=== PATIENT | male | born 1995 | race Caucasian/White ===

== ENCOUNTER 2017-01-23 20:36 | Emergency (ER) | payer OTHER ==
[~2017-01-23] VITALS: Ht 177.8 cm; Wt 76.7 kg
[2017-01-23 20:44] VITALS: TEMP 37.8; Ht 177.8 cm; Wt 76.7 kg
--- NOTE | 2017-01-23 21:03 | EMERGENCY ROOM VISIT NOTE ---
History First contact with patient: 20:52 Chief Complaint: SORETHROAT Stated Complaint: SORE THROAT, HEADACHE, FATIGUE History of Present Illness The patient is a 21 year old male who presents to the Emergency Room with complaints of sore throat which began yesterday. The patient states that he woke up with a sore throat yesterday morning which has worsened today. He states that he has had a mild headache as well as body aches. He has felt chills but has not taken his temperature. He has taken one dose of ibuprofen earlier today. He does report a history of strep infections. The patient denies neck pain/stiffness, abdominal pain, nausea or vomiting. He denies any difficulty swallowing or breathing. Review of Systems A complete 10 point review of systems was reviewed with the patient with pertinent positives and negatives as per history of present illness. All else were negative. Social History Smoking Status: Never Smoker Current/Historical Medications Scheduled Cefdinir (Omnicef), 300 MG PO Q12H Ibuprofen Tab (Advil), 400 MG PO PRN UD Multivitamins/Minerals (Mvi With Minerals), 1 TAB PO Q2D Scheduled PRN Acetaminophen (Tylenol), 1,000 MG PO PRN UD PRN for Pain or Fever Multiple Vitamins W/ Minerals (Emergen-C Immune), 1 DOSE PO DAILY PRN for ILL Physical Exam Vital Signs Date Time Temp Pulse Resp B/P (MAP) Pulse Ox O2 Delivery O2 Flow Rate FiO2 01/23/17 22:01 88 16 100/47 97 01/23/17 20:47 95 Room Air 01/23/17 20:44 37.8 110 18 155/62 95 Room Air Physical Exam VITALS: Vitals are noted on the nurse's note and reviewed by myself. Vital signs stable. GENERAL: This is a 21-year-old male, in no acute distress, nondiaphoretic, well- developed well-nourished. SKIN: The skin was without rashes. EARS: External auditory canals clear, tympanic membranes pearly ortiz without erythema or effusion bilaterally. EYES: Pupils equal round and reactive to light and accommodation. Conjunctivae without injection, sclerae without icterus. MOUTH: Mucous membranes moist. Tonsils are enlarged bilaterally and are mildly erythematous. There is exudate present bilaterally. NECK: Supple without nuchal rigidity. Left anterior cervical lymphadenopathy. HEART: Regular rate and rhythm without murmurs gallops or rubs. LUNGS: Clear to auscultation bilaterally without wheezes, rales or rhonchi. NEURO: Patient was alert and oriented to person place and time. Medical Decision & Procedures Medications Administered Medications (Trade) Dose Ordered Sig/Jackie Route Start Time Stop Time Status Last Admin Dose Admin Cefdinir (Omnicef Cap) 600 mg ONE STAT PO 01/23/17 21:40 01/23/17 21:42 DC 01/23/17 21:59 600 MG Medical Decision Differential diagnosis includes strep pharyngitis, viral pharyngitis, among others. The patient is a 21-year-old male who presents today complaining of a sore throat. Rapid strep swab was performed and was negative. However, patient's exam is consistent with strep pharyngitis given his lymphadenopathy, exudate and fever. The patient will be placed on Omnicef, as he has a reported childhood allergy to penicillins. Conservative measures were discussed with the patient. He will follow-up with [facility] as needed. He verbalized understanding of my assessment and treatment plan and was discharged home in good condition. Medication Reconcilliation Current Medication List: was personally reviewed by me Blood Pressure Screening Patient's blood pressure: Normal blood pressure Impression Primary Impression: Acute pharyngitis Departure Information Dispostion Home / Self-Care Condition GOOD Prescriptions Cefdinir (OMNICEF) 300 Mg Cap 300 MG PO Q12H for 7 Days, #14 CAP Prov: Shima Moreland .PATRICIA 01/23/17 Referrals No Doctor, Assigned (PCP) Patient Instructions My [facility] Additional Instructions You were seen in the emergency department for your sore throat. You were prescribed Omnicef to be taken twice daily as prescribed. This is an antibiotic. All antibiotics have the potential to cause diarrhea. Stop this medication and contact a medical provider if you were to develop any significant adverse side effects including: wheezing, shortness of breath, passing out, vomiting, or a diffuse rash. Always take antibiotics as directed and COMPLETE the ENTIRE course regardless of the improvement of your symptoms. For pain and fever control, you can use the following alvf-bqw-cjtjwgn medicines (if >12 yo): - Regular strength (325mg/tab) Tylenol (acetaminophen) 2 tabs every 4-6 hours as needed. Do not exceed 12 tablets in a 24 hour period. Avoid taking more than 4 grams (4000 mg) of Tylenol per day. This includes any other sources of acetaminophen you may take on a regular basis. - Regular strength (200 mg/tab) Advil (ibuprofen) 1-2 tabs every 4-6 hours as needed. Do not exceed a dose of 3200 mg per day. - For best results, alternate dosing of Tylenol and Advil. In addition to your prescribed medications, you can also use the following home remedies: - Warm salt-water gargles 3 times per day can soothe your throat and help to fight infection. - Warm tea with honey can soothe your throat. Return to the emergency department if your symptoms persist or worsen over the next 2-3 days despite treatment course outlined above. Return to the emergency department if you develop the following symptoms of: inability to swallow solids , liquids, or drool; excessive wheezing or inability to catch your breath; or intractable fever or pain. Follow up with your primary care provider in 2-3 days from today's emergency department visit.
[2017-01-23] MEDS ORDERED: MULT1PAK42 PO (21:09)
[2017-01-23] MEDS ORDERED: MULT-513 PO (21:09)
[2017-01-23] MEDS ORDERED: ACET-1256 PO (21:09)
[2017-01-23] MEDS ORDERED: IBUP-103 PO (21:09)
[2017-01-23] MEDS ORDERED: CEFDINIR 300 MG CAP PO STA (21:40)
[2017-01-23] MEDS ORDERED: CEFD300C2 PO (21:46)
[2017-01-23 22:01] VITALS: BP 100/47; PULSE 88; O2SAT 97
--- NOTE | 2017-01-25 13:49 | Pharmacy Progress Note ---
ED Pharmacist Culture FollowUp Date of Service: Jan 25, 2017. Patient was sent home with a prescription for omnicef, which should cover the group B and group C beta strep growing from the patient's throat culture.
== END 2017-01-23 22:01 | disposition home or self-care (01) ==
LOC: C.EDB 20:39 → C.EDD 22:01
DX: J02.9 Acute pharyngitis, unspecified (principal)

== ENCOUNTER 2017-01-25 12:43 | Emergency (ER) | payer OTHER ==
[~2017-01-25] VITALS: Ht 177.8 cm; Wt 74.8 kg
[~2017-01-25 12:43] MED LIST: ACET-1256 PO; CEFD300C2 PO; IBUP-103 PO; MULT-513 PO; MULT1PAK42 PO
[2017-01-25 12:46] VITALS: TEMP 36.8; Ht 177.8 cm; Wt 74.8 kg
[2017-01-25] MEDS ORDERED: PRED20TA PO (13:23)
[2017-01-25] MEDS ORDERED: DEXAMETHASONE SOD INJ 10 MG/ML VIAL IM ONE (13:30)
[2017-01-25 13:33] VITALS: BP 104/60; PULSE 68; O2SAT 98
--- NOTE | 2017-01-25 17:48 | EMERGENCY ROOM VISIT NOTE ---
History Report prepared by Bia: Amalia Reyes Under the Supervision of: Dr. Daniel Leavitt M.D. First contact with patient: 13:15 Chief Complaint: THROAT PAIN/INJURY Stated Complaint: STREP THROAT History of Present Illness The patient is a 21 year old male who presents to the Emergency Room with complaints of worsening sore throat starting 3 days ago. He was started on Omnicef 2 days ago which he has been taking. The sore throat is worsening. He is having pain on both sides which worsens with swallowing and talking. He has been taking Advil and Tylenol to no significant relief. He had a slight fever 2 days ago. He denies any vomiting or SOB. He denies any medical problems. Source of History: patient Onset: 3 days ago Position: throat Quality: other (sore) Timing: worsening Modifying Factors (Worsening): other (talking, swallowing) Associated Symptoms: + fevers (resolved), No SOB, No vomiting Review of Systems See HPI for pertinent positives & negatives. A total of 10 systems reviewed and were otherwise negative. Past Medical & Surgical Medical Problems: (1) No significant past medical history Family History No pertinent family history stated. Social History Smoking Status: Never Smoker Marital Status: single Occupation Status: employed Current/Historical Medications Scheduled Prednisone (Prednisone), 3 TAB PO DAILY Allergies Coded Allergies: Amoxicillin (Verified Allergy, Unknown, HIVES, 01/23/17) Physical Exam Vital Signs Date Time Temp Pulse Resp B/P (MAP) Pulse Ox O2 Delivery O2 Flow Rate FiO2 01/25/17 13:33 68 18 104/60 98 Room Air 01/25/17 13:32 99 Room Air 01/25/17 12:46 36.8 70 20 113/76 99 Room Air Physical Exam Constitutional: Vital signs reviewed. Eyes: Pupils are equal round reactive to light. Conjunctiva are noninjected. ENT: Bilateral tonsillar enlargement. No trismus, uvular edema or shift, or peritonsillar abscess. Mucous membranes are moist. Neck supple without meningeal signs. Anterior cervical lymphadenopathy. Respiratory: Clear to auscultation bilaterally. Breath sounds are equal bilaterally. No stridor or wheezing. Cardiovascular: Regular rate and rhythm. No rubs or gallops. GI: Soft, nondistended and nontender. Bowel sounds are present. Musculoskeletal: No peripheral edema. No lower extremity tenderness. Integumentary: No cyanosis. Neurological: The patient is awake and alert. No focal deficits. Psychiatric: Normal affect. Medical Decision & Procedures Medications Administered Medications (Trade) Dose Ordered Sig/Jackie Route Start Time Stop Time Status Last Admin Dose Admin Dexamethasone Sodium Phosphate (Decadron Inj) 10 mg NOW ONCE IM 01/25/17 13:30 01/25/17 13:31 DC 01/25/17 13:33 10 MG ED Course 1317: The patient was evaluated in room C1B. A complete history and physical exam was performed. I discussed tonight's findings with him. He verbalized agreement of the treatment plan. He was discharged home. 1330: Decadron Inj 10 mg IM. Medical Decision This is a 21-year-old male who presents with worsening pain in his throat. Differential diagnosis includes strep pharyngitis, viral syndrome, peritonsillar abscess, infectious mononucleosis. I did perform a limited focused review of portions of the patient's old chart on the electronic medical record. The patient was here on the for sore throat and headache. He was diagnosed with pharyngitis. He had negative strep tests. He was discharged on Omnicef. His throat culture grew out group B strep. I did evaluate the patient as noted above. He did have group B and group C strep from the stroke culture. He has swelling to his tonsils but no signs of peritonsillar abscess. He is able to swallow liquids. I did treat him with Decadron 10 mg IM. He was told to continue his antibiotics and was discharged with a prescription for prednisone. He was given return instructions as outlined below. Medication Reconcilliation Current Medication List: was personally reviewed by me Blood Pressure Screening Patient's blood pressure: Normal blood pressure Blood pressure disposition: Did not require urgent referral Impression Primary Impression: Pharyngitis Additional Impression: Odynophagia Scribe Attestation The scribe's documentation has been prepared under my direct and personally reviewed by me in its entirety. I confirm that the note above accurately reflects all work, treatment, procedures, and medical decision making performed by me. Departure Information Dispostion Home / Self-Care Prescriptions Prednisone (Prednisone) 20 Mg Tab 3 TAB PO DAILY, #12 TAB FOR 4 DAYS Prov: Daniel Leavitt M.D. 01/25/17 Referrals No Doctor, Assigned (PCP) Forms HOME CARE DOCUMENTATION FORM, IMPORTANT VISIT INFORMATION, WORK / SCHOOL INSTRUCTIONS Patient Instructions My [facility], Sore Throat - [facility] Additional Instructions You have been examined and treated today on an emergency basis only. This is not a substitute for, or an effort to provide, complete comprehensive medical care. It is impossible to recognize and treat all injuries or illnesses in a single emergency department visit. It is therefore important that you follow up closely with [facility]. Call as soon as possible for an appointment. Return for worsening symptoms or if you develop difficulty breathing, inability to swallow liquids, vomiting, or any other concerning symptoms. Continue your antibiotics as prescribed. Start prednisone tomorrow. Problem Qualifiers Primary Impression: Pharyngitis Pharyngitis/tonsillitis etiology: other specified organisms Qualified Codes: J02.8 - Acute pharyngitis due to other specified organisms
== END 2017-01-25 13:59 | disposition home or self-care (01) ==
LOC: C.EDB 12:43 → C.EDC 13:59
DX: J02.0 Streptococcal pharyngitis (principal)